=== PATIENT | male | born 1940 | race Caucasian/White ===

== ENCOUNTER 2017-04-04 09:21 | Emergency (ER) | payer MEDICARE, MEDICAID ==
--- NOTE | 2017-04-04 12:22 | ED ---
Upper Extremity Pain - HPI Summary HPI Summary: Pt here w/ Rt neck/shoulder pain radiating into Rt tricep upon waking this rene. Admits to grooming his dog with Rt shoulder raised for a prolonged period of time last night - thinks this caused his pain this moring, Tried ASA and aspacream prior to arrival - feels much better now. Denies numbness, tingling, weakness, chest pain, SOB, fatigue, jaw pain, diaphoresis. The latter sx were asked about as he has h/o cardiac dz (stents) - reports pain he felt in Rt neck/shoulder are not similar to any chest pain/cardiac issues he's ever had in the past. - History of Current Complaint Chief Complaint: EDExtremityUpper Stated Complaint: RIGHT SHOULDER PAIN Time Seen by Provider: 04/04/17 12:00 - Allergies/Home Medications Allergies/Adverse Reactions: Allergies Allergy/AdvReac Type Severity Reaction Status Date / Time Celecoxib [From Celebrex] Allergy Intermediate skin Verified 04/04/17 11:32 sloughing Adhesive Tape [Paper Tape] Allergy Mild Rash Verified 04/04/17 11:32 Naproxen Allergy Mild double Verified 04/04/17 11:32 vision Lactose Intolerance (GI) Allergy Unknown unk Verified 04/04/17 11:32 PMH/Surg Hx/FS Hx/Imm Hx Endocrine/Hematology History: Reports: Hx Anticoagulant Therapy - COUMADIN Respiratory History: Reports: Hx Sleep Apnea GI History: Reports: Hx Gastroesophageal Reflux Disease, Hx Hiatal Hernia, Other GI Disorders - Ayoub's Musculoskeletal History: Reports: Hx Arthritis - Surgical History Surgery Procedure, Year, and Place: Bowel resection - 2000 - precancerous colon polyp. L TKR - 2012 Infectious Disease History: No Infectious Disease History: Denies: Traveled Outside the [place] in Last 30 Days - Social History Alcohol Use: None Substance Use Type: Reports: None Hx Tobacco Use: Yes Smoking Status (MU): Former Smoker Physical Exam Vital Signs On Initial Exam: Initial Vitals Temp Pulse Resp BP Pulse Ox 98.1 F 88 18 129/73 98 04/04/17 09:48 04/04/17 09:48 04/04/17 09:48 04/04/17 09:48 04/04/17 09:48 - Kellie Coma Scale Coma Scale Total: 15 Diagnostics - Vital Signs Vital Signs Temp Pulse Resp BP Pulse Ox 04/04/17 09:48 98.1 F 88 18 129/73 98 - Laboratory Lab Statement: Any lab studies that have been ordered have been reviewed, and results considered in the medical decision making process. Discharge - Discharge Plan Referrals: Naveen Brasher MD [Primary Care Provider] -
[2017-04-04 12:57] VITALS: BP 114/60
== END 2017-04-04 12:46 | disposition home or self-care (01) ==
LOC: ED 09:21
DX: M25.511 Pain in right shoulder (principal); K21.9 Gastro-esophageal reflux disease without esophagitis; Z79.01 Long term (current) use of anticoagulants; Z87.891 Personal history of nicotine dependence
CPT/HCPCS: 99282

== ENCOUNTER 2020-05-07 12:35 | Observation (INO) ==
[2020-05-07 13:34] LABS: ABS Basophils 0.1 10^3/ul (0-0.2); ABS Eosinophils 0.1 10^3/ul (0-0.6); ABS Lymphocytes 1.3 10^3/ul (1.0-4.8); ABS Monocytes 0.5 10^3/ul (0-0.8); ABS Neutrophils 2.6 10^3/ul (1.5-7.7); Eosinophil % 1.7 %; Hematocrit 44 % (42-52); Lymphocyte % 27.8 %; Mean Corpuscular HGB Conc 34 g/dL (31-36); Mean Corpuscular Hemoglobin 32 pg (27-31); Mean Corpuscular Volume 95 fL (80-94); Mean Platelet Volume 7.6 fL (7.4-10.4); Platelet Count 226 10^3/uL (150-450); Red Blood Count 4.69 10^6 /uL (4.18-5.48); Red Cell Distribution Width 14 % (10-15); White Blood Count 4.5 10^3/uL (3.5-10.8)
[2020-05-07 14:02] LABS: Albumin 4.3 g/dL (3.2-5.2); Calcium 9.1 mg/dL (8.6-10.3); Magnesium 2.2 mg/dL (1.9-2.7); Potassium 3.7 mmol/L (3.5-5.0); Total Bilirubin 0.7 mg/dL (0.2-1.0)
[2020-05-07 14:03] LABS: Troponin I 0.01 ng/mL (<0.03)
[2020-05-07 14:08] LABS: Albumin/Globulin Ratio 1.5 (1-3); BUN/Creatinine Ratio 19.8 (8-20); EGFR African American 81.5 (>60); EGFR Non-African American 67.4 (>60); Globulin 2.8 g/dL (2-4); Total Protein 7.1 g/dL (6.4-8.9)
[2020-05-07] MEDS ORDERED: Enoxaparin 40 MG/0.4 ML SYR SUBCUT SCH (16:00)
[2020-05-07] MEDS ORDERED: Cholecalciferol (VIT D3) 1,000 unit TAB PO SCH (17:00)
[2020-05-07] MEDS ORDERED: Aspirin EC 81 mg TAB.EC (enteric coated) PO SCH (21:00)
[2020-05-07] MEDS ORDERED: Potassium Chlor 10 meq TAB PO SCH (21:00)
[2020-05-07] MEDS: Potassium Chlor 10 meq TAB PO SCH (22:37)
[2020-05-08] MEDS: Potassium Chlor 10 meq TAB PO SCH (08:07)
[2020-05-08 09:19] LABS: TSH Ultra Thyroid Stim Horm 2.35 mcIU/mL (0.34-5.60)
[2020-05-08] MEDS ORDERED: Potassium Chloride LIQUID 20 MEQ/15 ML LIQUID PO ONE (12:27)
[2020-05-08 12:50] VITALS: BP 141/72
== END 2020-05-08 14:02 | disposition home or self-care (01) ==
LOC: MEDTELE 12:35 → ED 12:35 → MEDTELE 16:38
PROVIDERS: ADMIT Internal Medicine; ATTEND Internal Medicine

== ENCOUNTER 2021-05-21 15:43 | Inpatient (IN) ==
[2021-05-21 17:08] LABS: Hematocrit 21 % (42-52); Hemoglobin 7.3 g/dL (14.0-18.0); Mean Corpuscular HGB Conc 34 g/dL (31-36); Mean Corpuscular Hemoglobin 31 pg (27-31); Mean Corpuscular Volume 91 fL (80-94); Mean Platelet Volume 8.4 fL (7.4-10.4); Platelet Count 144 10^3/uL (150-450); Red Blood Count 2.33 10^6 /uL (4.18-5.48); Red Cell Distribution Width 15 % (10-15); White Blood Count 4.8 10^3/uL (3.5-10.8)
[2021-05-21 17:17] LABS: Albumin 2.8 g/dL (3.2-5.2); CO2 Carbon Dioxide 21 mmol/L (22-32); Calcium 7.7 mg/dL (8.6-10.3); Chloride 106 mmol/L (101-111); Sodium 132 mmol/L (135-145)
[2021-05-21 17:23] LABS: ALT 35 U/L (7-52); Albumin/Globulin Ratio 1.2 (1-3); Alkaline Phosphatase 44 U/L (35-149); Blood Urea Nitrogen 31 mg/dL (6-24); Globulin 2.4 g/dL (2-4); Glucose 165 mg/dL (70-100); Total Protein 5.2 g/dL (6.4-8.9); eGFR CKD-EPI 47.5 (>60)
[2021-05-21] MEDS ORDERED: Iodixanol (CONTRAST) 320 MG/ML 100 ML SDV IV ONE (17:27)
[2021-05-21 17:57] LABS: Troponin I 0.01 ng/mL (<0.03)
[2021-05-21 18:09] LABS: Anion Gap 5 mmol/L (2-11)
[2021-05-21 18:18] LABS: Polychromasia 2+
[2021-05-21 18:19] LABS: ABS Lymphocytes 0.7 10^3/ul (1.0-4.8); ABS Monocytes 0.8 10^3/ul (0-0.8); ABS Neutrophils 3.3 10^3/ul (1.5-7.7); Eosinophil % 0.3 %; Nucleated Red Blood Cells % 0.2
[2021-05-21 18:44] LABS: Potassium Redraw 3.9 mmol/L (3.5-5.0)
[2021-05-21 20:20] LABS: Troponin I 0.03 ng/mL (<0.03)
[2021-05-21] MEDS ORDERED: Furosemide 20 mg/2 ml IV VIAL IV SLOW PU ONE (21:07)
[2021-05-21] MEDS ORDERED: Ondansetron 4 mg VIAL 2 MG/ML 2 ml VIAL IV PRN (21:07)
[2021-05-21] MEDS ORDERED: Dextrose 50% Syringe 50 ml 25 GM/50 ML SYRINGE IV PUSH PRN (21:07)
[2021-05-21 22:08] LABS: Urine Appearance Clear; Urine Bilirubin Negative (Negative); Urine Blood 1+ (Negative); Urine Color Yellow; Urine Glucose 1+(50 mg/dL) (Negative); Urine Ketones Negative (Negative); Urine Nitrite Negative (Negative); Urine Protein Negative (Negative); Urine Specific Gravity 1.033 (1.002-1.030); Urine Urobilinogen Negative (Negative)
[2021-05-21 22:56] LABS: Urine Bacteria Absent (Absent); Urine Red Blood Cell Trace(0-2/hpf) (Absent); Urine Squamous Epithelial Cell Present (Absent); Urine White Blood Cell Trace(0-5/hpf) (Absent)
[2021-05-21 23:08] LABS: INR 1.43 (0.86-1.15)
[2021-05-21 23:36] LABS: Troponin I 0.03 ng/mL (<0.03)
[2021-05-22 01:55] LABS: Hematocrit 25 % (42-52); Hemoglobin 8.6 g/dL (14.0-18.0)
[2021-05-22 05:53] LABS: Hematocrit 23 % (42-52); Hemoglobin 7.9 g/dL (14.0-18.0); Mean Corpuscular HGB Conc 34 g/dL (31-36); Mean Corpuscular Hemoglobin 31 pg (27-31); Mean Corpuscular Volume 92 fL (80-94); Mean Platelet Volume 7.4 fL (7.4-10.4); Platelet Count 151 10^3/uL (150-450); Red Blood Count 2.55 10^6 /uL (4.18-5.48); Red Cell Distribution Width 15 % (10-15); White Blood Count 4.3 10^3/uL (3.5-10.8)
[2021-05-22 05:58] LABS: INR 1.41 (0.86-1.15)
[2021-05-22 06:12] LABS: Calcium 7.7 mg/dL (8.6-10.3); Potassium 4.2 mmol/L (3.5-5.0); eGFR CKD-EPI 52.6 (>60)
[2021-05-22 06:38] LABS: Polychromasia 1+
[2021-05-22 06:39] LABS: Basophilic Stippling 1+
[2021-05-22 06:40] LABS: ABS Lymphocytes 0.9 10^3/ul (1.0-4.8); ABS Monocytes 0.7 10^3/ul (0-0.8); ABS Neutrophils 2.6 10^3/ul (1.5-7.7); Eosinophil % 0.7 %; Lymphocyte % 20.3 %; Nucleated Red Blood Cells % 0.1
[2021-05-22] MEDS ORDERED: Pneumococcal Vac 23-Polyvalent IM ONE (09:00)
[2021-05-22] MEDS: NALOXEGOL OXALATE 25 MG PO SCH (09:53)
[2021-05-22] MEDS ORDERED: Phytonadione Oral Solution 5 MG/25 ML UDC PO ONE (13:25)
[2021-05-22 13:42] LABS: Corrected Retic Count 3.1 % (0.5-1.5); Hematocrit 24 % (42-52); Hematocrit for Retic CNT 24 % (42-52); Hemoglobin 8.2 g/dL (14.0-18.0); Mean Corpuscular HGB Conc 34 g/dL (31-36); Mean Corpuscular Hemoglobin 32 pg (27-31); Mean Corpuscular Volume 91 fL (80-94); Mean Platelet Volume 7.4 fL (7.4-10.4); Platelet Count 147 10^3/uL (150-450); RBC Retic Count 2.62 10^6/uL (4.18-5.48); Red Blood Count 2.62 10^6 /uL (4.18-5.48); Red Cell Distribution Width 15 % (10-15); White Blood Count 3.5 10^3/uL (3.5-10.8)
[2021-05-22 13:45] LABS: ABS Lymphocytes 0.6 10^3/ul (1.0-4.8); ABS Monocytes 0.5 10^3/ul (0-0.8); ABS Neutrophils 2.5 10^3/ul (1.5-7.7); Eosinophil % 0.2 %; Lymphocyte % 17.1 %
[2021-05-22 13:57] LABS: Anion Gap 4 mmol/L (2-11); Blood Urea Nitrogen 23 mg/dL (6-24); CO2 Carbon Dioxide 26 mmol/L (22-32); Calcium 7.9 mg/dL (8.6-10.3); Chloride 105 mmol/L (101-111); Glucose 166 mg/dL (70-100); Potassium 4.3 mmol/L (3.5-5.0); Sodium 135 mmol/L (135-145); eGFR CKD-EPI 57.7 (>60)
[2021-05-22 14:05] LABS: Activated Partial Thrombo Time 27.9 seconds (26.0-38.0); Fibrinogen 257.3 mg/dL (110.8-404.3)
[2021-05-22 14:28] LABS: % Iron Saturation 20 % (15-55); Iron 50 ug/dL (50-212); Total Iron Binding Capacity 255 mcg/dL (250-450); Transferrin 182 mg/dL (203-362); Unsaturated Iron Binding 205 ug/dL
[2021-05-22 14:49] LABS: Ferritin 425.4 ng/mL (24-336)
[2021-05-22 14:54] LABS: Vitamin B12 > 1450 pg/mL (180-914)
[2021-05-23 06:07] LABS: Hematocrit 25 % (42-52); Hemoglobin 8.7 g/dL (14.0-18.0); Mean Corpuscular HGB Conc 35 g/dL (31-36); Mean Corpuscular Hemoglobin 32 pg (27-31); Mean Corpuscular Volume 92 fL (80-94); Mean Platelet Volume 7.7 fL (7.4-10.4); Platelet Count 163 10^3/uL (150-450); Red Blood Count 2.73 10^6 /uL (4.18-5.48); Red Cell Distribution Width 15 % (10-15); White Blood Count 5.1 10^3/uL (3.5-10.8)
[2021-05-23 06:17] LABS: INR 1.33 (0.86-1.15)
[2021-05-23 06:21] LABS: Albumin 2.9 g/dL (3.2-5.2); Albumin/Globulin Ratio 1.1 (1-3); Globulin 2.6 g/dL (2-4); Magnesium 2.1 mg/dL (1.9-2.7); Potassium 4.1 mmol/L (3.5-5.0); Total Bilirubin 1.2 mg/dL (0.2-1.0); Total Protein 5.5 g/dL (6.4-8.9)
[2021-05-23 06:42] LABS: Polychromasia 1+
[2021-05-23 06:43] LABS: ABS Monocytes 0.8 10^3/ul (0-0.8); ABS Neutrophils 3.2 10^3/ul (1.5-7.7); Eosinophil % 0.5 %; Lymphocyte % 19.8 %; Nucleated Red Blood Cells % 0.2
[2021-05-23] MEDS: NALOXEGOL OXALATE 25 MG PO SCH (08:54)
[2021-05-23 12:21] LABS: Activated Partial Thrombo Time 29.1 seconds (26.0-38.0)
[2021-05-24 06:54] LABS: Hematocrit 25 % (42-52); Hemoglobin 8.9 g/dL (14.0-18.0); Mean Corpuscular HGB Conc 36 g/dL (31-36); Mean Corpuscular Hemoglobin 33 pg (27-31); Mean Corpuscular Volume 92 fL (80-94); Mean Platelet Volume 7.5 fL (7.4-10.4); Platelet Count 150 10^3/uL (150-450); Red Blood Count 2.71 10^6 /uL (4.18-5.48); Red Cell Distribution Width 16 % (10-15); White Blood Count 2.8 10^3/uL (3.5-10.8)
[2021-05-24 07:11] LABS: Calcium 7.9 mg/dL (8.6-10.3); Potassium 3.9 mmol/L (3.5-5.0); eGFR CKD-EPI 70.9 (>60)
[2021-05-24 07:52] LABS: ABS Lymphocytes 0.6 10^3/ul (1.0-4.8); ABS Monocytes 0.5 10^3/ul (0-0.8); ABS Neutrophils 1.6 10^3/ul (1.5-7.7); Eosinophil % 1.4 %; Lymphocyte % 22.3 %; Microcytosis 1+; Nucleated Red Blood Cells % 0.2; Polychromasia 1+
[2021-05-24] MEDS: NALOXEGOL OXALATE 25 MG PO SCH (08:55)
[2021-05-24 11:27] LABS: INR 1.43 (0.86-1.15)
[2021-05-24] MEDS: Polyethylene Glycol 3350 17 GM PACKET PO SCH (12:52)
[2021-05-24 12:54] LABS: PT/Normal Control 12.5 seconds (9.4-12.5)
[2021-05-24 12:55] LABS: PT/After 1 Hour Incubation 12.6 seconds (9.4-12.5)
[2021-05-24] MEDS: Magnesium Hydroxide LIQ 30 ML UDC PO PRN (14:18)
[2021-05-24] MEDS: Saline NASAL SPRAY 0.65% BTL BOTH NARES PRN (21:02)
[2021-05-25 07:00] LABS: Hematocrit 27 % (42-52); Hemoglobin 9.1 g/dL (14.0-18.0); Mean Corpuscular HGB Conc 34 g/dL (31-36); Mean Corpuscular Hemoglobin 32 pg (27-31); Mean Corpuscular Volume 92 fL (80-94); Mean Platelet Volume 7.7 fL (7.4-10.4); Platelet Count 160 10^3/uL (150-450); Red Blood Count 2.87 10^6 /uL (4.18-5.48); Red Cell Distribution Width 16 % (10-15); White Blood Count 3.4 10^3/uL (3.5-10.8)
[2021-05-25 07:17] LABS: Calcium 7.7 mg/dL (8.6-10.3); Potassium 3.9 mmol/L (3.5-5.0); eGFR CKD-EPI 73.4 (>60)
[2021-05-25 07:58] LABS: Anisocytosis 1+; Polychromasia 1+
[2021-05-25 07:59] LABS: ABS Lymphocytes 0.7 10^3/ul (1.0-4.8); ABS Monocytes 0.6 10^3/ul (0-0.8); Eosinophil % 1.3 %; Nucleated Red Blood Cells % 0.1
[2021-05-25] MEDS: Polyethylene Glycol 3350 17 GM PACKET PO SCH (08:17)
[2021-05-25] MEDS: NALOXEGOL OXALATE 25 MG PO SCH (08:17)
[2021-05-25 09:54] LABS: INR 1.35 (0.86-1.15)
[2021-05-25] MEDS: Saline NASAL SPRAY 0.65% BTL BOTH NARES PRN (15:15)
[2021-05-26] MEDS: Saline NASAL SPRAY 0.65% BTL BOTH NARES PRN (05:53)
[2021-05-26 06:31] LABS: Hematocrit 28 % (42-52); Hemoglobin 9.7 g/dL (14.0-18.0); Mean Corpuscular HGB Conc 35 g/dL (31-36); Mean Corpuscular Hemoglobin 32 pg (27-31); Mean Corpuscular Volume 92 fL (80-94); Mean Platelet Volume 7.7 fL (7.4-10.4); Platelet Count 178 10^3/uL (150-450); Red Blood Count 3.04 10^6 /uL (4.18-5.48); Red Cell Distribution Width 16 % (10-15); White Blood Count 4.3 10^3/uL (3.5-10.8)
[2021-05-26 06:46] LABS: Calcium 8.4 mg/dL (8.6-10.3); Potassium 4.2 mmol/L (3.5-5.0); eGFR CKD-EPI 71.8 (>60)
[2021-05-26] MEDS: Magnesium Hydroxide LIQ 30 ML UDC PO PRN (07:53)
[2021-05-26] MEDS: Polyethylene Glycol 3350 17 GM PACKET PO SCH (07:54)
[2021-05-26] MEDS: NALOXEGOL OXALATE 25 MG PO SCH (07:55)
[2021-05-26 08:02] LABS: ABS Lymphocytes 0.7 10^3/ul (1.0-4.8); ABS Monocytes 0.7 10^3/ul (0-0.8); ABS Neutrophils 2.8 10^3/ul (1.5-7.7); Anisocytosis 1+; Eosinophil % 1.1 %; Lymphocyte % 16.6 %; Nucleated Red Blood Cells % 0.1; Polychromasia 1+
[2021-05-27] MEDS: Polyethylene Glycol 3350 17 GM PACKET PO SCH (08:43)
[2021-05-27] MEDS: NALOXEGOL OXALATE 25 MG PO SCH (08:43)
[2021-05-27 11:50] LABS: Rapid COVID-19 Molecular Undetected (Undetected)
[2021-05-27 11:56] VITALS: BP 134/60
== END 2021-05-27 14:32 | DRG 815 ==
LOC: ED 15:43 → SUATTDRO 20:58 → EDHOLD 20:58 → MEDTELE 05-22 00:44
PROVIDERS: ADMIT Nurse Practitioner Family; ATTEND Internal Medicine